=== PATIENT | female | born 1980 | race Caucasian/White ===

== ENCOUNTER 2017-12-04 13:51 | Emergency (ER) | payer MEDICAID ==
[~2017-12-04] VITALS: Ht 157.5 cm; Wt 72.0 kg
[2017-12-04 14:56] VITALS: BP 148/67
[2017-12-04] MEDS ORDERED: LORazepam 1 MG tablet PO ONE (15:10)
[2017-12-04] MEDS ORDERED: LORA-269 PO (15:30)
== END 2017-12-04 15:41 | disposition home or self-care (01) ==
LOC: ER 13:51
DX: F41.0 Panic disorder [episodic paroxysmal anxiety] (principal); Z79.899 Other long term (current) drug therapy
CPT/HCPCS: 93005; 99284

== ENCOUNTER 2018-10-29 10:27 | Outpatient (CLI) | payer MEDICAID ==
[~2018-10-29 10:27] MED LIST: LORA-269 PO
== END 2018-10-29 23:59 | disposition home or self-care (01) ==
LOC: LAB 10:27
PROVIDERS: ATTEND Obstetrics & Gynecology
DX: D25.9 Leiomyoma of uterus, unspecified (principal)
CPT/HCPCS: 36415; 84439; 84443

== ENCOUNTER 2018-11-13 10:09 | Outpatient (CLI) | payer MEDICAID ==
[2018-11-13] MEDS ORDERED: gadopentetate dimeglumine 10 MMOL/20 ML syringe IV ONE (12:17)
== END 2018-11-13 23:59 | disposition home or self-care (01) ==
LOC: RAD 10:09
PROVIDERS: ATTEND Obstetrics & Gynecology
DX: D25.9 Leiomyoma of uterus, unspecified (principal); N88.8 Other specified noninflammatory disorders of cervix uteri
CPT/HCPCS: 72197; 74183; A9579

== ENCOUNTER 2019-03-13 06:50 | Day surgery (SDC) | payer MEDICAID ==
[2019-03-12 16:42] LABS: BASOPHILS # (AUTO) 0.1 X10'3 (0-0.2); BASOPHILS % (AUTO) 1.2 % (0-1); EOSINOPHILS # (AUTO) 0.1 X10'3 (0-0.9); EOSINOPHILS % (AUTO) 1.5 % (0-6); LYMPHOCYTES # (AUTO) 1.5 X10'3 (1.1-4.8); MEAN CORPUSCULAR HGB CONC 34.2 g/dL (33.0-36.5); MEAN CORPUSCULAR VOLUME 90.5 FL (78-98); MEAN PLATELET VOLUME 8.8 FL (7.4-10.4); MONOCYTES # (AUTO) 0.6 X10'3 (0-0.9); MONOCYTES % (AUTO) 9.1 % (2-12); NEUTROPHILS # (AUTO) 4.1 X10'3 (1.8-7.7); NEUTROPHILS % (AUTO) 64.2 % (42-75); PRE OP HEMATOCRIT 39.5 % (35.0-45.0); PRE OP HEMOGLOBIN 13.5 g/dL (12.0-16.0); PRE OP PLATELET COUNT 266 X10'3 (140-440); RED BLOOD COUNT 4.37 X10'6 (4.20-5.60); RED CELL DISTRIBUTION WIDTH 13.4 % (11.5-14.5)
[2019-03-12 16:46] LABS: CLARITY,URINE CLOUDY (Clear); COLOR,URINE YELLOW (Yellow); GLUCOSE, URINE NEGATIVE (Neg); KETONES,URINE NEGATIVE (Neg); LEUKOCYTE ESTERASE ,URINE LARGE (Neg); NITRITES, URINE NEGATIVE (Neg); OCCULT BLOOD,URINE TRACE-INTACT (Neg); PROTEIN,URINE TRACE mg/dl (Neg); UROBILINOGEN,URINE 0.2 E.U/dL (0.2-1.0)
[2019-03-12 16:48] LABS: UA COLLECTION TYPE CLN CATCH MIDSTREAM
[2019-03-12 16:56] LABS: HCG SERUM QL NEGATIVE
[2019-03-12 17:00] LABS: SQUAMOUS EPITHELIAL CELL,UR MANY /LPF (FEW)
[2019-03-12 17:01] LABS: ALBUMIN 3.9 G/DL (3.4-5.0); ALBUMIN/GLOBULIN RATIO 1.1 (1.1-1.5); ALKALINE PHOSPHATASE 71 IU/L (46-116); BLOOD UREA NITROGEN 14 MG/DL (7-18); BUN/CREATININE RATIO 16.9 (6.6-38.0); CALCIUM 8.8 MG/DL (8.5-10.1); CHLORIDE 103 MMOL/L (99-107); CREATININE 0.83 MG/DL (0.40-0.90); PRE OP ALT 26 U/L (30-65); PRE OP ANION GAP 8 (8-16); PRE OP AST 11 U/L (10-37); PRE OP BILIRUB, TOTAL 0.5 MG/DL (0.0-1.0); PRE OP GLUCOSE 86 MG/DL (70-104); PRE OP POTASSIUM 3.5 MMOL/L (3.4-5.1); PRE OP SODIUM 138 MMOL/L (135-145); TOTAL PROTEIN 7.4 G/DL (6.4-8.2); eGFR 77 ML/MIN
[2019-03-12 17:01] LABS: BACTERIA,URINE 2+ /HPF (Neg); WBC,URINE 50-100 /HPF (0-4)
[2019-03-13] VITALS (13 sets, daily range): BP systolic 104–131; BP diastolic 68–82
[~2019-03-13] VITALS: Ht 157.5 cm; Wt 75.5 kg
[~2019-03-13 06:50] MED LIST changes: +IBUP-1984 PO; -LORA-269 PO; +TRAZ-251 PO; +ceFOXitin 2 GM ADDVANTGE BAG 50 ML IV ONE; +famotidine 20mg tablet PO ONE; +ringers solution, lacted 1,000 ML IV SCH
[2019-03-13] MEDS ORDERED: proCHLORperazine 10 MG/2 ml inj IV PRN (07:55)
[2019-03-13] MEDS ORDERED: ondansetron/PF 4mg/2ml inj IV PRN (07:55)
[2019-03-13] MEDS ORDERED: ringers solution, lacted 1,000 ML IV SCH (07:55)
[2019-03-13] MEDS ORDERED: morphine 4 MG/ML inj SYRINge IV PRN ×2 (07:55)
[2019-03-13] MEDS ORDERED: meperidine/PF 25mg/ml syringe IV PRN ×2 (07:55)
[2019-03-13] MEDS ORDERED: vasoPRESSIN 20 units/ml inj. ONE (08:16)
[2019-03-13] MEDS ORDERED: midazolam 2 mg/2 ml injection ONE ×2 (08:25→08:45)
[2019-03-13] MEDS ORDERED: epiNEPHrine 1 mg/ml inj ONE (08:34)
[2019-03-13] MEDS ORDERED: sevoflurane 250ml liquid IH ONE (08:41)
[2019-03-13] MEDS ORDERED: rocuronium 10mg/ml inj IV ONE (08:45)
[2019-03-13] MEDS ORDERED: fentaNYL/PF 50MCG/1 ML 2ML syringe ONE (08:45)
[2019-03-13] MEDS ORDERED: propofol inj 20 ML IV ONE (08:46)
[2019-03-13] MEDS ORDERED: dexamethasone sod phosphate 4mg/ml inj. ONE (09:02)
[2019-03-13] MEDS ORDERED: ondansetron/PF 4mg/2ml inj ONE (09:02)
[2019-03-13] MEDS ORDERED: acetaminophen 1,000mg/100ml IV 100 ML IV ONE (09:02)
[2019-03-13] MEDS: BUPIVAcaine/PF 2.5 mg/ml (0.25%) 30ml vial ONE ×2 (09:55→09:58)
[2019-03-13] MEDS ORDERED: neostigmine methylsulfate 1 MG/ML 10ml vial ONE (11:17)
[2019-03-13] MEDS ORDERED: glycopyrrolate 0.2mg/ml inj ONE (11:17)
--- NOTE | 2019-03-13 11:31 | NUR ---
Received from OR via , accompanied by Anesthesiologist DR JOHNSON and report given by Anesthesiolgist. AWAKENS TO VOICE. VITALS STABLE. DRESSING DI. INESSA PAIN. ABD SOFT.
[2019-03-13] MEDS: meperidine/PF 25mg/ml syringe IV PRN ×2 (12:02→12:41)
[2019-03-13] MEDS ORDERED: ketorolac trometh. 30mg/ml inj. IV ONE (12:05)
--- NOTE | 2019-03-13 13:31 | NUR ---
AWAKE AND ORIENTED. VITALS STABLE. DRESSING DI. STATES PAIN IMPROVING. HOME WITH HER SPOUSE AT THIS TIME.
[2019-03-14] MEDS ORDERED: HYDR-3965 PO (05:47)
== END 2019-03-13 13:31 | disposition home or self-care (01) ==
LOC: PAS 06:50
PROVIDERS: ATTEND Obstetrics & Gynecology Obstetrics
DX: N84.0 Polyp of corpus uteri (principal); D25.0 Submucous leiomyoma of uterus; N83.11 Corpus luteum cyst of right ovary; D64.9 Anemia, unspecified; F41.9 Anxiety disorder, unspecified; Z79.899 Other long term (current) drug therapy
CPT/HCPCS: 36415; 58558; 58661; 71046; 80053; 81001; 82948; 84703; 85025; 86885; 86900; 86901; 93005; J0131; J0171; J0694; J1100; J1885; J2175; J2250; J2405; J2704; J2710; J3010; J3490; J7030; J7120; A4314; A4355; A4618; A6258; A6449; A7000

== ENCOUNTER 2019-03-14 03:49 | Emergency (ER) | payer MEDICAID ==
[~2019-03-14] VITALS: Ht 157.5 cm; Wt 73.6 kg
[~2019-03-14 03:49] MED LIST changes: -ceFOXitin 2 GM ADDVANTGE BAG 50 ML IV ONE; -famotidine 20mg tablet PO ONE; -ringers solution, lacted 1,000 ML IV SCH
[2019-03-14] MEDS ORDERED: morphine 4 MG/ML inj SYRINge IV ONE (04:15)
[2019-03-14] MEDS ORDERED: ondansetron/PF 4mg/2ml inj IV ONE (04:15)
[2019-03-14] MEDS ORDERED: iohexol 350MG/ML 100ml bottle IV ONE (04:42)
[2019-03-14 04:49] LABS: BASOPHILS # (AUTO) 0.1 X10'3 (0-0.2); BASOPHILS % (AUTO) 0.4 % (0-1); EOSINOPHILS % (AUTO) 0.1 % (0-6); HEMATOCRIT 37.3 % (35.0-45.0); HEMOGLOBIN 12.7 g/dl (12.0-16.0); LYMPHOCYTES # (AUTO) 1.4 X10'3 (1.1-4.8); LYMPHOCYTES % (AUTO) 10.3 % (21-51); MEAN CORPUSCULAR HEMOGLOBIN 30.9 PG (27.0-31.0); MEAN CORPUSCULAR HGB CONC 33.9 g/dL (33.0-36.5); MEAN CORPUSCULAR VOLUME 91.2 FL (78-98); MEAN PLATELET VOLUME 8.7 FL (7.4-10.4); MONOCYTES % (AUTO) 7.1 % (2-12); NEUTROPHILS # (AUTO) 11.4 X10'3 (1.8-7.7); NEUTROPHILS % (AUTO) 82.1 % (42-75); PLATELET COUNT 260 X10'3 (140-440); RED BLOOD COUNT 4.09 X10'6 (4.20-5.60); RED CELL DISTRIBUTION WIDTH 13.4 % (11.5-14.5); WHITE BLOOD COUNT 13.9 X10'3 (4.5-11.0)
[2019-03-14 04:59] LABS: PARTIAL THROMBOPLASTIN TIME 29 SECONDS (22-32)
[2019-03-14 05:00] LABS: ALBUMIN 3.9 G/DL (3.4-5.0); ALBUMIN/GLOBULIN RATIO 1.1 (1.1-1.5); ALKALINE PHOSPHATASE 70 IU/L (46-116); ANION GAP 8 (8-16); ASPARTATE AMINO TRANSFERASE 15 U/L (10-37); BILIRUBIN,TOTAL 0.6 MG/DL (0.1-1.0); BLOOD UREA NITROGEN 9 MG/DL (7-18); BUN/CREATININE RATIO 9.9 (6.6-38.0); CALCIUM 8.5 MG/DL (8.5-10.1); CHLORIDE 103 MMOL/L (99-107); CREATININE 0.91 MG/DL (0.40-0.90); GLUCOSE 109 MG/DL (70-104); POTASSIUM 3.5 MMOL/L (3.5-5.1); SODIUM 137 MMOL/L (135-145); TOTAL CARBON DIOXIDE 26.1 MMOL/L (24-32); TOTAL PROTEIN 7.5 G/DL (6.4-8.2); eGFR 69 ML/MIN
[2019-03-14] MEDS ORDERED: HYDROmorphone inj. 0.5 MG/0.5 ML DISP.SYRIN IV ONE (05:00)
[2019-03-14 05:12] LABS: ALANINE AMINOTRANSFERASE 22 U/L (12-78)
[2019-03-14] MEDS ORDERED: HYDR-3965 PO (05:47)
--- NOTE | 2019-03-14 06:50 | NUR ---
SPOKE WITH DR GUTIERREZ AND INQUIRED IF UA REQUIRED, NO NEED FOR SPECIMEN IF PT NOT NEEDING TO URINATE.
[2019-03-14 07:11] VITALS: BP 109/57
== END 2019-03-14 08:04 | disposition home or self-care (01) ==
LOC: ER 03:51
DX: N99.89 Other postprocedural complications and disorders of genitourinary system (principal); R06.02 Shortness of breath; M25.511 Pain in right shoulder; R10.9 Unspecified abdominal pain; Z90.721 Acquired absence of ovaries, unilateral; Z79.899 Other long term (current) drug therapy; Y83.8 Other surgical procedures as the cause of abnormal reaction of the patient, or of later complication, without mention of misadventure at the time of the procedure; Y92.89 Other specified places as the place of occurrence of the external cause
CPT/HCPCS: 36415; 71275; 74177; 80053; 84145; 85025; 85610; 85730; 93005; 96374; 96375; 99284; J1170; J2270; J2405; Q9967

== ENCOUNTER 2019-09-08 20:53 | Emergency (ER) | payer MEDICAID ==
[~2019-09-08] VITALS: Ht 157.5 cm; Wt 77.2 kg
[2019-09-08 21:25] LABS: BASOPHILS # (AUTO) 0.1 X10'3 (0-0.2); BASOPHILS % (AUTO) 0.9 % (0-1); EOSINOPHILS # (AUTO) 0.1 X10'3 (0-0.9); EOSINOPHILS % (AUTO) 1.7 % (0-6); HEMATOCRIT 35.2 % (35.0-45.0); LYMPHOCYTES # (AUTO) 1.9 X10'3 (1.1-4.8); LYMPHOCYTES % (AUTO) 25.7 % (21-51); MEAN CORPUSCULAR HEMOGLOBIN 28.1 PG (27.0-31.0); MEAN CORPUSCULAR HGB CONC 34.2 g/dL (33.0-36.5); MEAN CORPUSCULAR VOLUME 82.4 FL (78-98); MEAN PLATELET VOLUME 8.2 FL (7.4-10.4); MONOCYTES # (AUTO) 0.7 X10'3 (0-0.9); MONOCYTES % (AUTO) 9.2 % (2-12); NEUTROPHILS # (AUTO) 4.5 X10'3 (1.8-7.7); NEUTROPHILS % (AUTO) 62.5 % (42-75); PLATELET COUNT 304 X10'3 (140-440); RED BLOOD COUNT 4.27 X10'6 (4.20-5.60); WHITE BLOOD COUNT 7.2 X10'3 (4.5-11.0)
[2019-09-08] MEDS ORDERED: NO HOME MEDS (21:26)
--- NOTE | 2019-09-08 21:50 | NUR ---
Lab phoned and gave report that the patient is A+ blood type from previous records so they do not need to complete an RH factor unless a type and screen is needed.
--- NOTE | 2019-09-08 22:27 | NUR ---
Pt is awaiting US to be completed.
[2019-09-09 00:04] VITALS: BP 119/72
== END 2019-09-08 23:58 | disposition home or self-care (01) ==
LOC: ER 20:53
DX: O20.0 Threatened abortion (principal); Z3A.01 Less than 8 weeks gestation of pregnancy; Z79.899 Other long term (current) drug therapy
CPT/HCPCS: 76801; 84702; 85025; 99284